=== PATIENT | male | born 1985 | race Caucasian/White ===

== ENCOUNTER 2018-09-22 17:06 | Emergency (ER) | payer SELFPAY ==
--- NOTE | 2018-09-22 17:12 | EDM.PDOC ---
ED HPI GENERAL MEDICAL PROBLEM - General Chief Complaint: Chest Pain Stated Complaint: CHEST PAIN, SHORTNESS OF BREATH Time Seen by Provider: 09/22/18 17:09 - History of Present Illness INITIAL COMMENTS - FREE TEXT/NARRATIVE: HISTORY AND PHYSICAL: History of present illness: Patient 33-year-old white male with no significant past medical history presents with a concern of palpitations he also describes some vague chest pain without associated shortness of breath nausea vomiting or diaphoresis he had similar episodes in the past he denies drug or alcohol abuse Review of systems: As per history of present illness and below otherwise all systems reviewed and negative. Past medical history: As per history of present illness and as reviewed below otherwise noncontributory. Surgical history: As per history of present illness and as reviewed below otherwise noncontributory. Social history: No reported history of drug or alcohol abuse. Family history: As per history of present illness and as reviewed below otherwise noncontributory. Physical exam: HEENT: Atraumatic, normocephalic, pupils reactive, negative for conjunctival pallor or scleral icterus, mucous membranes moist, throat clear, neck supple, nontender, trachea midline. Lungs: Clear to auscultation, breath sounds equal bilaterally, chest nontender. Heart: S1S2, regular, negative for clicks, rubs, or JVD. Abdomen: Soft, nondistended, nontender. Negative for masses or hepatosplenomegaly. Negative for costovertebral tenderness. Pelvis: Stable nontender. Genitourinary: Deferred. Rectal: Deferred. Extremities: Atraumatic, negative for cords or calf pain. Neurovascular unremarkable. Neuro: Awake, alert, oriented. Cranial nerves II through XII unremarkable. Cerebellum unremarkable. Motor and sensory unremarkable throughout. Exam nonfocal. Diagnostics: CBC CMP troponin PT/INR TSH chest x-ray EKG Therapeutics: None Impression: #1 palpitations #2 atypical chest pain Definitive disposition and diagnosis as appropriate pending reevaluation and review of above. chest Pain Score (Numeric/FACES): 5 - Related Data Allergies Allergy/AdvReac Type Severity Reaction Status Date / Time No Known Allergies Allergy Verified 09/22/18 17:07 Home Meds: Home Meds . [No Known Home Meds] 05/02/18 [History] Past Medical History Cardiovascular History: Reports: Other (See Below) Other Cardiovascular History: Childhood irregular rhythm. Social & Family History - Family History Family Medical History: Noncontributory ED ROS GENERAL - Review of Systems Review Of Systems: ROS reveals no pertinent complaints other than HPI. ED EXAM, GENERAL - Physical Exam Exam: See Below (dictation) Course - Vital Signs Last Recorded V/S: Last Vital Signs Temp 36.0 C 09/22/18 17:08 Pulse 69 09/22/18 17:08 Resp 18 09/22/18 17:08 BP 156/116 H 09/22/18 17:08 Pulse Ox 99 09/22/18 17:08 - Orders/Labs/Meds Orders: Active Orders 24 hr Category Date Time Status EKG Documentation Completion [RC] STAT Care 09/22/18 17:12 Active Chest 1V Frontal [CR] Stat Exams 09/22/18 17:12 Taken Labs: Laboratory Tests 09/22/18 09/22/18 09/22/18 Range/Units 17:10 17:10 17:10 WBC 8.10 (4.0-11.0) K/uL RBC 5.63 (4.50-5.90) M/uL Hgb 16.9 (13.0-17.0) g/dL Hct 47.9 (38.0-50.0) % MCV 85.1 (80.0-98.0) fL MCH 30.0 (27.0-32.0) pg MCHC 35.3 (31.0-37.0) g/dL RDW Std Deviation 42.9 (28.0-62.0) fl RDW Coeff of Malena 14 (11.0-15.0) % Plt Count 261 (150-400) K/uL MPV 9.90 (7.40-12.00) fL Neut % (Auto) 48.2 (48.0-80.0) % Lymph % (Auto) 38.6 (16.0-40.0) % Webb % (Auto) 9.9 (0.0-15.0) % Eos % (Auto) 3.1 (0.0-7.0) % Baso % (Auto) 0.2 (0.0-1.5) % Neut # (Auto) 3.9 (1.4-5.7) K/uL Lymph # (Auto) 3.1 H (0.6-2.4) K/uL Webb # (Auto) 0.8 (0.0-0.8) K/uL Eos # (Auto) 0.3 (0.0-0.7) K/uL Baso # (Auto) 0.0 (0.0-0.1) K/uL Nucleated RBC % 0.0 /100WBC Nucleated RBCs # 0 K/uL INR 0.98 Sodium 140 (136-148) mmol/L Potassium 3.8 (3.5-5.1) mmol/L Chloride 103 (98-107) mmol/L Carbon Dioxide 26.0 (21.0-32.0) mmol/L BUN 17 (7.0-18.0) mg/dL Creatinine 1.2 (0.8-1.3) mg/dL Est Cr Clr Drug Dosing 83.92 mL/min Estimated GFR (MDRD) > 60.0 ml/min Glucose 113 H (74-106) mg/dL Calcium 9.4 (8.5-10.1) mg/dL Total Bilirubin 0.6 (0.2-1.0) mg/dL AST 10 L (15-37) IU/L ALT 32 (14-63) IU/L Alkaline Phosphatase 48 (46-116) U/L Troponin I < 0.050 (0.000-0.056) ng/mL Total Protein 7.8 (6.4-8.2) g/dL Albumin 4.3 (3.4-5.0) g/dL Globulin 3.5 (2.6-4.0) g/dL Albumin/Globulin Ratio 1.2 (0.9-1.6) TSH 3rd Generation 1.03 (0.36-3.74) uIU/mL Departure - Departure Time of Disposition: 18:24 Disposition: Home, Self-Care 01 Condition: Good Clinical Impression: Palpitations, Atypical chest pain - Discharge Information Forms: ED Department Discharge Additional Instructions: The following information is given to patients seen in the emergency department who are being discharged to home. This information is to outline your options for follow-up care. We provide all patients seen in our emergency department with a follow-up referral. The need for follow-up, as well as the timing and circumstances, are variable depending upon the specifics of your emergency department visit. If you don't have a primary care physician on staff, we will provide you with a referral. We always advise you to contact your personal physician following an emergency department visit to inform them of the circumstance of the visit and for follow-up with them and/or the need for any referrals to a consulting specialist. The emergency department will also refer you to a specialist when appropriate. This referral assures that you have the opportunity for followup care with a specialist. All of these measure are taken in an effort to provide you with optimal care, which includes your followup. Under all circumstances we always encourage you to contact your private physician who remains a resource for coordinating your care. When calling for followup care, please make the office aware that this follow-up is from your recent emergency room visit. If for any reason you are refused follow-up, please contact the [facility] emergency department at and asked to speak to the emergency department charge nurse. [facility] [address] [place] [id number] Follow-up primary medical doctor and/or clinic above as needed as discussed and return as needed as discussed - My Orders Last 24 Hours: My Active Orders 09/22/18 17:12 EKG Documentation Completion [RC] STAT Chest 1V Frontal [CR] Stat - Assessment/Plan Last 24 Hours: My Active Orders 09/22/18 17:12 EKG Documentation Completion [RC] STAT Chest 1V Frontal [CR] Stat
[2018-09-22 18:06] LABS: CHLORIDE,CL 103 mmol/L (98-107); SODIUM,NA 140 mmol/L (136-148)
--- NOTE | 2018-09-22 18:29 | CR ---
INDICATION: Chest tightness TECHNIQUE: Chest one view COMPARISON: Chest x-ray 05/02/2018 FINDINGS: The heart is normal in size. The pulmonary vasculature is within normal limits. The lungs are clear without focal consolidation, pleural effusion or pneumothorax. IMPRESSION: Stable chest without acute cardiopulmonary process Dictated by Rossy Mroe MD @ 09/22/2018 6:27:01 PM Dictated by: Rossy More MD @ 09/22/2018 18:27:07 (Electronically Signed)
== END 2018-09-22 18:39 | disposition home or self-care (01) ==
LOC: MW.ED 17:06
DX: R00.2 Palpitations (principal); R07.89 Other chest pain
CPT/HCPCS: 36415; 71045; 71045-26; 80053; 84443; 84484; 85025; 85610; 99285-25

== ENCOUNTER 2019-10-22 09:18 | Emergency (ER) | payer SELFPAY ==
[2019-10-22] MEDS ORDERED: Albuterol/Ipratropium 3.0-0.5 MG/3 ML Neb Soln NEB ONE (10:21)
--- NOTE | 2019-10-22 10:31 | EDM.PDOC ---
ED HPI GENERAL MEDICAL PROBLEM - General Chief Complaint: Respiratory Problem Stated Complaint: COUGH COLD Time Seen by Provider: 10/22/19 10:16 Source of Information: Reports: Patient History Limitations: Reports: No Limitations - History of Present Illness INITIAL COMMENTS - FREE TEXT/NARRATIVE: HISTORY AND PHYSICAL: History of present illness: Patient is a 34-year-old male who presents to the emergency room with complaints of a dry nonproductive cough x7 to 10 days. He states his symptoms are progressively getting worse and he is not getting much sleep. Patient denies any fever, chills, headache, change in vision, syncope or near syncope. Denies any abdominal pain, nausea, vomiting, diarrhea, constipation or dysuria. Patient has been eating and drinking appropriately. Review of systems: As per history of present illness and below otherwise all systems reviewed and negative. Past medical history: As per history of present illness and as reviewed below otherwise noncontributory. Surgical history: As per history of present illness and as reviewed below otherwise noncontributory. Social history: See social history for further information Family history: As per history of present illness and as reviewed below otherwise noncontributory. Physical exam: General: Well-developed and well-nourished 34-year-old male. Alert and oriented. Nontoxic-appearing and in no acute distress. HEENT: Atraumatic, normocephalic, pupils equal and reactive bilaterally, negative for conjunctival pallor or scleral icterus, mucous membranes moist, TMs normal bilaterally, throat clear, neck supple, nontender, trachea midline. No drooling or trismus noted. No meningeal signs. No hot potato voice noted. Lungs: Fine expiratory wheezing noted to bilateral bases. Otherwise clear to auscultation, breath sounds equal bilaterally, chest nontender. Dry nonproductive cough is noted. Heart: S1S2, regular rate and rhythm without overt murmur Abdomen: Soft, nondistended, nontender. Negative for masses or hepatosplenomegaly. Negative for costovertebral tenderness. Skin: Intact, warm, dry. No lesions or rashes noted. Extremities: Atraumatic, moves all extremities per self without difficulty or deficits, negative for cords or calf pain. Neurovascular unremarkable. Neuro: Awake, alert, oriented. Cranial nerves II through XII unremarkable. Cerebellum unremarkable. Motor and sensory unremarkable throughout. Exam nonfocal. Notes: Lung sounds have somewhat improved after the DuoNeb. Chest x-ray shows no acute findings. Due to longevity of symptoms I will give him prescriptions. We discussed signs and symptoms that would prompt him to return to the emergency room. Supportive care measures were reviewed and discussed. Voices understanding and is agreeable to plan of care. Denies any further questions or concerns at this time. Diagnostics: Chest x-ray Therapeutics: DuoNeb Prescription: Cheratussing (#4oz) Vita Szymanski Impression: Bronchitis Plan: 1. Please use Tylenol and/or Ibuprofen as needed for pain and fever management. Cheratussin for cough relief; this medication may cause drowsiness so do not take it while driving or needing to be functioning outside of the house. You can use the duo nebs 1 every 4 hours as needed. Otherwise take the prescriptions as directed. 2. Get plenty of Rest. Encourage fluids to prevent dehydration. 3. Please follow up with your primary care provider. Return to the ED as needed as discussed. Definitive disposition and diagnosis as appropriate pending reevaluation and review of above. chest with coughing Pain Score (Numeric/FACES): 6 - Related Data Allergies Allergy/AdvReac Type Severity Reaction Status Date / Time No Known Allergies Allergy Verified 10/22/19 09:33 Home Meds: Home Meds Escitalopram [Lexapro] 20 mg PO DAILY 10/22/19 [History] Past Medical History HEENT History: Reports: Impaired Vision, Other (See Below) Other HEENT History: wears glasses Cardiovascular History: Reports: Other (See Below) Other Cardiovascular History: Childhood irregular rhythm. Respiratory History: Reports: None Gastrointestinal History: Reports: None Genitourinary History: Reports: None Musculoskeletal History: Reports: None Neurological History: Reports: None Psychiatric History: Reports: Anxiety Endocrine/Metabolic History: Reports: None Hematologic History: Reports: None Immunologic History: Reports: None Oncologic (Cancer) History: Reports: None Dermatologic History: Reports: None - Infectious Disease History Infectious Disease History: Reports: Chicken Pox - Past Surgical History Head Surgeries/Procedures: Reports: None HEENT Surgical History: Reports: None Respiratory Surgical History: Reports: None GI Surgical History: Reports: None Male Surgical History: Reports: None Endocrine Surgical History: Reports: None Neurological Surgical History: Reports: None Musculoskeletal Surgical History: Reports: None Oncologic Surgical History: Reports: None Dermatological Surgical History: Reports: None Social & Family History - Family History Family Medical History: Noncontributory - Tobacco Use Smoking Status *Q: Never Smoker - Caffeine Use Caffeine Use: Reports: Coffee - Recreational Drug Use Recreational Drug Use: No ED ROS GENERAL - Review of Systems Review Of Systems: Comprehensive ROS is negative, except as noted in HPI. ED EXAM, GENERAL - Physical Exam Exam: See Below (See dictation) Course - Vital Signs Last Recorded V/S: Last Vital Signs Temp 98.5 F 10/22/19 09:31 Pulse 69 10/22/19 09:31 Resp 18 10/22/19 09:31 BP 141/88 H 10/22/19 09:31 Pulse Ox 98 10/22/19 09:31 - Orders/Labs/Meds Orders: Active Orders 24 hr Category Date Time Status RT Aerosol Therapy [RC] ASDIRECTED Care 10/22/19 10:21 Active Meds: Medications Discontinued Medications Generic Name Dose Route Start Last Admin Trade Name Freq PRN Reason Stop Dose Admin Albuterol/Ipratropium 3 ml 10/22/19 10:21 10/22/19 10:32 Duoneb 3.0-0.5 Mg/3 Ml NEB 10/22/19 10:22 3 ml ONETIME ONE Administration Departure - Departure Time of Disposition: 11:15 Disposition: Home, Self-Care 01 Clinical Impression: Bronchitis - Discharge Information Instructions: Upper Respiratory Infection, Adult, [id number] Referrals: PCP,None [Primary Care Provider] - Forms: ED Department Discharge Additional Instructions: The following information is given to patients seen in the emergency department who are being discharged to home. This information is to outline your options for follow-up care. We provide all patients seen in our emergency department with a follow-up referral. The need for follow-up, as well as the timing and circumstances, are variable depending upon the specifics of your emergency department visit. If you don't have a primary care physician on staff, we will provide you with a referral. We always advise you to contact your personal physician following an emergency department visit to inform them of the circumstance of the visit and for follow-up with them and/or the need for any referrals to a consulting specialist. The emergency department will also refer you to a specialist when appropriate. This referral assures that you have the opportunity for follow-up care with a specialist. All of these measure are taken in an effort to provide you with optimal care, which includes your follow-up. Under all circumstances we always encourage you to contact your private physician who remains a resource for coordinating your care. When calling for follow-up care, please make the office aware that this follow-up is from your recent emergency room visit. If for any reason you are refused follow-up, please contact the [facility] Emergency Department at and asked to speak to the emergency department charge nurse. [facility] [address], [place] [address] [facility] [address] [place] [id number] 1. Please use Tylenol and/or Ibuprofen as needed for pain and fever management. Cheratussin for cough relief; this medication may cause drowsiness so do not take it while driving or needing to be functioning outside of the house. You can use the duo nebs 1 every 4 hours as needed. Otherwise take the prescriptions as directed. 2. Get plenty of Rest. Encourage fluids to prevent dehydration. 3. Please follow up with your primary care provider. Return to the ED as needed as discussed. Sepsis Event Note - Evaluation Sepsis Screening Result: No Definite Risk - Focused Exam Vital Signs: Vital Signs Temp Pulse Resp BP Pulse Ox 10/22/19 09:31 98.5 F 69 18 141/88 H 98 Date Exam was Performed: 10/22/19 Time Exam was Performed: 11:17 - My Orders Last 24 Hours: My Active Orders 10/22/19 10:21 RT Aerosol Therapy [RC] ASDIRECTED - Assessment/Plan Last 24 Hours: My Active Orders 10/22/19 10:21 RT Aerosol Therapy [RC] ASDIRECTED
--- NOTE | 2019-10-22 11:14 | CR ---
Chest: 2 views of the chest were obtained. Comparison: Prior chest x-ray of 09/22/18. Heart size and mediastinum are normal. Lungs are clear with no acute parenchymal change. Bony structures appear within normal limits. Impression: 1. Nothing acute is seen on 2 view chest x-ray. 2. No change is seen from previous study. Diagnostic code #2 This report was dictated in [place] Standard Time
== END 2019-10-22 11:32 | disposition home or self-care (01) ==
LOC: MW.ED 09:18
DX: J40 Bronchitis, not specified as acute or chronic (principal); F41.9 Anxiety disorder, unspecified; Z79.899 Other long term (current) drug therapy
CPT/HCPCS: 71046; 71046-26; 94640; 99283-25; J7620-GY